=== PATIENT | female | born 1965 | race American Indian/Alaskan Native ===

== ENCOUNTER 2019-06-14 14:50 | Emergency (ER) | payer BC ==
--- NOTE | 2019-06-14 16:18 | Emergency Department Report ---
Blank Doc - Documentation Documentation: 54-yrea-old female that presents with wheezing, cough with HX of sacrodosis. This initial assessment/diagnostic orders/clinical plan/treatment(s) is/are subject to change based on patient's health status, clinical progression and re- assessment by fellow clinical providers in the ED. Further treatment and workup at subsequent clinical providers discretion. Patient/guardians urged not to elope from the ED as their condition may be serious if not clinically assessed and managed. Initial orders include: 1- Patient sent to [facility] for further evaluation and treatment 2- cxr
--- NOTE | 2019-06-14 16:49 | XRay Report ---
CHEST 2 VIEWS INDICATION / CLINICAL INFORMATION: cough. COMPARISON: 11/09/2008 FINDINGS: SUPPORT DEVICES: None. HEART / MEDIASTINUM: No significant abnormality. LUNGS / PLEURA: No significant pulmonary or pleural abnormality. No pneumothorax. ADDITIONAL FINDINGS: No significant additional findings. IMPRESSION: No significant abnormality or change from 11/09/2008 Signer Name: Phan Doll MD FACR Signed: 06/14/2019 4:44 PM Workstation Name: [id number]
[2019-06-14 18:51] VITALS: BP 173/77
--- NOTE | 2019-06-14 19:03 | Emergency Department Report ---
- General Chief Complaint: Upper Respiratory Infection Stated Complaint: SARCODOSIS/CP Time Seen by Provider: 06/14/19 16:10 Source: patient Mode of arrival: Ambulatory Limitations: No Limitations - History of Present Illness Initial Comments: Patient is a 54-year-old female presents emergency room with complaints of cold symptoms that began 3 weeks ago. She has associated productive cough, nausea, subjective fever, chest discomfort with coughing. She denies any leg swelling, pleuritic chest pain. She denies any recent travel, recent surgeries, hormone use. She denies being in contact with any confirmed cases of COVID 19. She has a past medical history of sarcoidosis and states that last week her doctor gave her 3 tablets of 10 mg of prednisone. She states that she also has a history of hypertension and states that she ran out of her 10 mg amlodipine. - Related Data Previous Rx's Medication Instructions Recorded Last Taken Type Albuterol Sulfate [Proventil Hfa] 6.7 gm IH QID PRN #1 hfa.aer.ad 06/14/19 Unknown Rx Azithromycin 500 mg PO DAILY 3 Days #3 tablet 06/14/19 Unknown Rx Benzonatate [Tessalon Perles] 100 mg PO Q8HR PRN #20 capsule 06/14/19 Unknown Rx Prednisone [predniSONE 10 mg 10 mg PO .TAPER #1 tab.ds.pk 06/14/19 Unknown Rx (6-Day Pack, 21 Tabs)] amLODIPine 10 mg PO DAILY 60 Days #60 tab 06/14/19 Unknown Rx Allergies Allergy/AdvReac Type Severity Reaction Status Date / Time No Known Allergies Allergy Unverified 06/14/19 14:58 ED Review of Systems ROS: Stated complaint: SARCODOSIS/CP Other details as noted in HPI Comment: All other systems reviewed and negative ED Past Medical Hx - Past Medical History Additional medical history: SARCOIDOSIS - Surgical History Past Surgical History?: No - Medications Home Medications: Home Medications Medication Instructions Recorded Confirmed Last Taken Type Albuterol Sulfate [Proventil Hfa] 6.7 gm IH QID PRN #1 hfa.aer.ad 06/14/19 Unknown Rx Azithromycin 500 mg PO DAILY 3 Days #3 tablet 06/14/19 Unknown Rx Benzonatate [Tessalon Perles] 100 mg PO Q8HR PRN #20 capsule 06/14/19 Unknown Rx Prednisone [predniSONE 10 mg 10 mg PO .TAPER #1 tab.ds.pk 06/14/19 Unknown Rx (6-Day Pack, 21 Tabs)] amLODIPine 10 mg PO DAILY 60 Days #60 tab 06/14/19 Unknown Rx ED Physical Exam - General Limitations: No Limitations General appearance: alert, in no apparent distress - Head Head exam: Present: atraumatic, normocephalic - Eye Eye exam: Present: normal appearance - ENT ENT exam: Present: normal orophraynx, mucous membranes moist, other (bilateral cerumen impactions, no tonsilar hypertrophy or exudates) - Respiratory Respiratory exam: Present: normal lung sounds bilaterally. Absent: respiratory distress, wheezes, rales, rhonchi, stridor, chest wall tenderness, accessory muscle use, decreased breath sounds, prolonged expiratory - Cardiovascular Cardiovascular Exam: Present: regular rate, normal rhythm, normal heart sounds. Absent: systolic murmur, diastolic murmur, rubs, gallop - Neurological Exam Neurological exam: Present: alert, oriented X3 - Psychiatric Psychiatric exam: Present: normal affect, normal mood - Skin Skin exam: Present: warm, dry, intact ED Course Vital Signs 06/14/19 15:05 Pulse Rate 60 Blood Pressure 173/77 O2 Sat by Pulse 98 Oximetry ED Medical Decision Making - Radiology Data Radiology results: report reviewed CHEST 2 VIEWS INDICATION / CLINICAL INFORMATION: cough. COMPARISON: 11/09/2008 FINDINGS: SUPPORT DEVICES: None. HEART / MEDIASTINUM: No significant abnormality. LUNGS / PLEURA: No significant pulmonary or pleural abnormality. No pneumothorax. ADDITIONAL FINDINGS: No significant additional findings. IMPRESSION: No significant abnormality or change from 11/09/2008 Signer Name: Phan Doll MD FACR Signed: 06/14/2019 4:44 PM Workstation Name: [id number] Transcribed By: MS Dictated By: Phan Doll MD Electronically Authenticated By: Phan Doll MD Signed Date/Time: 06/14/191643 DD/ 43 TD/TT: - Medical Decision Making Patient is a 54-year-old female presents emergency room with complaints of cold symptoms that began 3 weeks ago. She has associated productive cough, nausea, subjective fever, chest discomfort with coughing. She denies any leg swelling, pleuritic chest pain. She denies any recent travel, recent surgeries, hormone use. She denies being in contact with any confirmed cases of COVID 19. She has a past medical history of sarcoidosis and states that last week her doctor gave her 3 tablets of 10 mg of prednisone. She states that she also has a history of hypertension and states that she ran out of her 10 mg amlodipine. VSS. on exam: bilateral cerumen impactions, no tonsilar hypertrophy or exudates, breath sounds are clear bilaterally, no wheezing, no rales, no rhonchi. CXR: No significant abnormality or change from 11/09/2008. Advised patient to use Debrox ear cleaning solution kit [id number] for cerumen impactions and have her ears reevaluated by her primary care physician. Patient's symptoms and examination consistent with acute bronchitis. Patient given prescription for azithromycin, steroid taper, Tessalon Perles, albuterol inhaler, and refill of her amlodipine. advised pt to please take medications as prescribed. Please wash your hands frequently. If you cough or sneeze please do it into a napkin and throw it away and then wash your hands. Please stay at home until your symptoms have improved. Follow-up with a primary care doctor in the next 3 to 5 days for reexamination. Return to the emergency room immediately for any new or worsening symptoms. - Differential Diagnosis PNA, URI, bronchitis, viral syndrome, pharyngitis, sinusitis Critical care attestation.: If time is entered above; I have spent that time in minutes in the direct care of this critically ill patient, excluding procedure time. ED Disposition Clinical Impression: Acute bronchitis Qualifiers: Bronchitis organism: unspecified organism Qualified Code(s): J20.9 - Acute bronchitis, unspecified Cerumen impaction Qualifiers: Laterality: bilateral Qualified Code(s): H61.23 - Impacted cerumen, bilateral Disposition: DC-01 TO HOME OR SELFCARE Is pt being admited?: No Does the pt Need Aspirin: No Condition: Stable Instructions: Acute Bronchitis (ED) Additional Instructions: Please take medications as prescribed. Please wash your hands frequently. If you cough or sneeze please do it into a napkin and throw it away and then wash your hands. Please stay at home until your symptoms have improved. Follow-up with a primary care doctor in the next 3 to 5 days for reexamination. Return to the emergency room immediately for any new or worsening symptoms. Prescriptions: amLODIPine 10 mg PO DAILY 60 Days #60 tab Azithromycin 500 mg PO DAILY 3 Days #3 tablet Prednisone [predniSONE 10 mg (6-Day Pack, 21 Tabs)] 10 mg PO .TAPER #1 tab.ds.pk Albuterol Sulfate [Proventil Hfa] 6.7 gm IH QID PRN #1 hfa.aer.ad PRN Reason: shortness of breath Benzonatate [Tessalon Perles] 100 mg PO Q8HR PRN #20 capsule PRN Reason: cough Referrals: KY LUQUE MD [Primary Care Provider] - 3-5 Days MARINA LONDON MD [Staff Physician] - 3-5 Days [facility] [Outside] - 3-5 Days [facility] [Outside] - 3-5 Days Forms: Work/School Release Form(ED) Time of Disposition: 19:01 Print Language: UPPER SORBIAN
== END 2019-06-14 19:06 | disposition home or self-care (01) ==
LOC: ED 14:50
DX: J20.9 Acute bronchitis, unspecified (principal); H61.23 Impacted cerumen, bilateral; D86.9 Sarcoidosis, unspecified; I10 Essential (primary) hypertension; Z79.2 Long term (current) use of antibiotics; Z79.899 Other long term (current) drug therapy
CPT/HCPCS: 71046

== ENCOUNTER 2019-08-27 08:48 | Emergency (ER) | payer BC ==
[2019-08-27] MEDS ORDERED: ASPIRIN 325 MG TAB PO ONE (09:01)
[2019-08-27] MEDS ORDERED: SODIUM CHLORIDE 0.9% 1000 ML 1,000 ML IV ONE (09:33)
[2019-08-27] MEDS ORDERED: CYCLOBENZAPRINE 10 MG TAB PO ONE (09:33)
--- NOTE | 2019-08-27 09:48 | XRay Report ---
CHEST 1 VIEW INDICATION / CLINICAL INFORMATION: Chest Pain. COMPARISON: 06/14/2019 FINDINGS: SUPPORT DEVICES: None. HEART / MEDIASTINUM: No significant abnormality. LUNGS / PLEURA: No significant pulmonary or pleural abnormality. No pneumothorax. ADDITIONAL FINDINGS: No significant additional findings. IMPRESSION: No acute pulmonary or pleural abnormality. No change from 06/14/2019 Signer Name: Phan Doll MD FACR Signed: 08/27/2019 9:44 AM Workstation Name: [id number]
--- NOTE | 2019-08-27 10:10 | Emergency Department Report ---
HPI - General Chief Complaint: Chest Pain Time Seen by Provider: 08/27/19 09:04 - HPI HPI: 54-year-old -[place] female presents to the emergency department from home with complaint of back pain and chest pain. Patient has been having some mid to upper back pain since last , 4 days ago. It worsens with laying flat and with certain movements of her upper body. She denies any problems with bowel or bladder, numbness or paresthesias, or any neurological deficits. This morning the patient woke up with some midsternal chest pain that she feels is radiating from the back. Patient has a history of hypertension and sarcoidosis. She denies any fever, nausea or vomiting, lower extremity edema, shortness of breath. No recent travel or sick contacts at home. She denies any tobacco or illicit drug use. She does not have a primary care physician. The patient did see a telemedicine doctor and was prescribed some prednisone. ED Past Medical Hx - Past Medical History Previous Medical History?: Yes Hx Hypertension: Yes Additional medical history: SARCOIDOSIS - Social History Smoking Status: Never Smoker Substance Use Type: None - Medications Home Medications: Home Medications Medication Instructions Recorded Confirmed Last Taken Type Albuterol Sulfate [Proventil Hfa] 6.7 gm IH QID PRN #1 hfa.aer.ad 06/14/19 Unknown Rx Azithromycin 500 mg PO DAILY 3 Days #3 tablet 06/14/19 Unknown Rx Benzonatate [Tessalon Perles] 100 mg PO Q8HR PRN #20 capsule 06/14/19 Unknown Rx Prednisone [predniSONE 10 mg 10 mg PO .TAPER #1 tab.ds.pk 06/14/19 Unknown Rx (6-Day Pack, 21 Tabs)] amLODIPine 10 mg PO DAILY 60 Days #60 tab 06/14/19 Unknown Rx Cyclobenzaprine [Flexeril] 10 mg PO TID PRN #12 tablet 08/27/19 Unknown Rx Ibuprofen [Motrin 800 MG tab] 800 mg PO Q8HR PRN #20 tablet 08/27/19 Unknown Rx ED Review of Systems ROS: Stated complaint: CHEST PAIN Other details as noted in HPI Comment: All other systems reviewed and negative Constitutional: denies: chills, fever Eyes: denies: eye pain, vision change ENT: denies: ear pain, throat pain Respiratory: denies: cough, shortness of breath Cardiovascular: chest pain. denies: edema Gastrointestinal: denies: abdominal pain, vomiting Genitourinary: denies: dysuria, discharge Musculoskeletal: back pain. denies: joint swelling Skin: denies: rash, lesions Neurological: denies: headache, weakness Physical Exam - Physical Exam Vital Signs: Vital Signs 08/27/19 08:56 Temperature 98.4 F Pulse Rate 61 Respiratory 18 Rate Blood Pressure 186/89 O2 Sat by Pulse 96 Oximetry Physical Exam: GENERAL: The patient is well-developed well-nourished. HENT: Normocephalic. Atraumatic. Patient has moist mucous membranes. EYES: Extraocular motions are intact. NECK: Supple. Trachea is midline. CHEST/LUNGS: Clear to auscultation. There is no respiratory distress noted. HEART/CARDIOVASCULAR: Regular. There is no tachycardia. There is no murmur. ABDOMEN: Abdomen is soft, nontender. Patient has normal bowel sounds. SKIN: Skin is warm and dry. NEURO: The patient is awake, alert, and oriented. The patient is cooperative. The patient has no focal neurologic deficits. Normal speech. MUSCULOSKELETAL: There is no tenderness or deformity. There is no evidence of acute injury. BACK: No midline thoracic or lumbar tenderness to palpation, step-off or deformity. There is some reproducible mid to upper thoracic bilateral paraspinal tenderness to palpation. ED Course Vital Signs 08/27/19 08:56 Temperature 98.4 F Pulse Rate 61 Respiratory 18 Rate Blood Pressure 186/89 O2 Sat by Pulse 96 Oximetry ED Medical Decision Making - Lab Data Result diagrams: 08/27/19 09:07 08/27/19 09:07 - EKG Data -: EKG Interpreted by Me EKG shows normal: sinus rhythm, axis, intervals, QRS complexes, ST-T waves Rate: bradycardia (52 bpm) - EKG Data When compared to previous EKG there are: no significant change Interpretation: normal EKG (with mild bradycardia) - Radiology Data Radiology results: image reviewed interpreted by me: Chest x-ray does not show any acute process. There are no pleural effusions, obvious pneumonia and there is no pneumothorax. - Medical Decision Making This patient presented to the emergency department with a complaint of a 4-day history of upper back pain and then developed some midsternal chest discomfort earlier today. Back pain appears musculoskeletal as it is reproducible to palpation and worsens with certain movements. There is no midline pain or deformity. The chest pain also appears to have a musculoskeletal component. EKG was done that does not have any morphology consistent with ST elevation myocardial infarction or any significant dysrhythmia. Patient's labs have been mostly unremarkable including negative troponins x2 and a negative d-dimer. A chest x-ray was done that does not show any pneumonia, pleural effusions or pneumothorax, or any other acute process. Patient was given some anti- inflammatory medication, a muscle relaxer and a dose of IV analgesia. She was reevaluated multiple times over multiple hours and is feeling greatly improved. The back pain has significantly decreased. The chest pain has resolved at this point. She has a low heart and PALMA score. For all these reasons the patient appears safe for discharge home at this time. However her contact information has been sent over to the [facility] and vascular [place], and as part of our lo w risk chest pain protocol someone from their office should be contacting her shortly for close outpatient follow-up. She has also been given a referral for an orthopedist regarding her back pain. She will return to the emergency department with any worsening of her symptoms or any acute distress. Critical Care Time: No Critical care attestation.: If time is entered above; I have spent that time in minutes in the direct care of this critically ill patient, excluding procedure time. ED Disposition Clinical Impression: Hypertension Qualifiers: Hypertension type: essential hypertension Qualified Code(s): I10 - Essential (primary) hypertension Chest pain Qualifiers: Chest pain type: unspecified Qualified Code(s): R07.9 - Chest pain, unspecified Back pain Qualifiers: Back pain location: thoracic back pain Chronicity: unspecified Back pain laterality: bilateral Qualified Code(s): M54.6 - Pain in thoracic spine Disposition: DC-01 TO HOME OR SELFCARE Is pt being admited?: No Condition: Stable Instructions: Chest Pain (ED), Hypertension (ED) Additional Instructions: Please follow-up with a primary care physician in the next few days. I have given you a referral for a local orthopedist, Dr. Fritz, to follow-up regarding the back pains. I have also sent your contact information to the [facility] [place] and someone from their office should be contacting you in the next few days regarding close outpatient follow-up for your previous chest pain. Take the medications as prescribed. Return to the emergency department with any worsening of your symptoms or any acute distress. You have been prescribed a medication that is sedating and therefore should not be taken prior to driving, working, and responsible for children and in no way should be mixed with alcohol of any quantity. Prescriptions: Cyclobenzaprine [Flexeril] 10 mg PO TID PRN #12 tablet PRN Reason: Muscle Spasm Ibuprofen [Motrin 800 MG tab] 800 mg PO Q8HR PRN #20 tablet PRN Reason: Pain , Severe (7-10) Referrals: PRIMARY CARE, [Primary Care Provider] - 2-3 Days NENO FRITZ MD [Staff Physician] - 2-3 Days DORIS HAIR MD [Staff Physician] - 2-3 Days Forms: Work/School Release Form(ED) Time of Disposition: 13:26 Heart Score - HEART Score History: Slightly suspicious EKG: Normal Age: 45-65 Risk factors: 1-2 risk factors Troponin: < normal limit HEART Score: 2 - Critical Actions Critical Actions: 0-3 pts:0.9-1.7%risk of adverse cardiac event.Candidate for discharge PALMA score - Palma Score Age > 65: (0) No Aspirin use within the Past 7 Days: (0) No 3 or more CAD Risk Factors: (0) No 2 or more Angina events in past 24 hrs: (1) Yes (If pain is considered angina.) Known CAD with more than 50% Stenosis: (0) No Elevated Cardiac Markers: (0) No
[2019-08-27 10:35] LABS: Basophils # (Auto) 0.1 K/mm3 (0.0-0.1); Basophils % (Auto) 0.5 % (0.0-1.8); Eosinophils # (Auto) 0.1 K/mm3 (0.0-0.4); Eosinophils % (Auto) 0.8 % (0.0-4.3); Hematocrit 42.9 % (30.3-42.9); Hemoglobin 13.8 gm/dl (10.1-14.3); Lymphocytes # (Auto) 4.5 K/mm3 (1.2-5.4); Lymphocytes % (Auto) 37.6 % (13.4-35.0); Mean Corpuscular HGB Conc 32 % (30-34); Mean Corpuscular Volume 87 fl (79-97); Monocytes # (Auto) 1.1 K/mm3 (0.0-0.8); Platelet Count 311 K/mm3 (140-440); Red Blood Count 4.94 M/mm3 (3.65-5.03); Red Cell Distribution Width 14.6 % (13.2-15.2)
[2019-08-27 10:47] LABS: BUN/Creatinine Ratio 29; Blood Urea Nitrogen 23 mg/dL (7-17); Hemolysis Index 11
[2019-08-27] MEDS ORDERED: KETOROLAC 30 MG/1 ML INJ IV ONE (10:49)
[2019-08-27] MEDS ORDERED: MORPHINE 4 MG/1 ML INJ IV ONE (12:24)
[2019-08-27 13:35] VITALS: BP 118/64
== END 2019-08-27 14:10 | disposition home or self-care (01) ==
LOC: ED 08:48
DX: I10 Essential (primary) hypertension (principal); M54.6 Pain in thoracic spine; R07.89 Other chest pain; D86.9 Sarcoidosis, unspecified; Z79.1 Long term (current) use of non-steroidal anti-inflammatories (NSAID); Z79.2 Long term (current) use of antibiotics; Z79.899 Other long term (current) drug therapy
CPT/HCPCS: 36415; 71045; 80048; 84484; 85025; 85379; 85610; 93005; 96374; 96375; 99284; J1885; J2270; J7030

== ENCOUNTER 2020-09-09 13:24 | Emergency (ER) | payer BC ==
--- NOTE | 2020-09-09 15:05 | Event Note ---
ED Screening Note Date of service: 09/09/20 Time: 15:03 ED Screening Note: 55-year-old female presents to the ER today complaining of rectal bleeding. She states that symptoms started this past Tuesday. She describes the blood as maroon-colored but she also noticed some mucus as well. She reports associated upper abdominal pain as well as nausea and she did vomit once this past Tuesday. He states that she take ibuprofen sometimes 3 times a day for chronic hip pain. She drinks occasionally. Has medical history significant for hypertension and chronic hip pain. He reports a history of hemorrhoids but she states that the symptoms that she is having feels different. He has never had a colonoscopy. She denies any similar symptoms in the past This initial assessment/diagnostic orders/clinical plan/treatment(s) is/are subject to change based on patients health status, clinical progression and re- assessment by fellow clinical providers in the ED. Further treatment and workup at subsequent clinical providers discretion. Patient/guardian urged not to elope from the ED as their condition may be serious if not clinically assessed and managed. Initial orders include: Labs/CT abdomen pelvis
[2020-09-09 15:31] LABS: Basophils # (Auto) 0.1 K/mm3 (0.0-0.1); Basophils % (Auto) 0.7 % (0.0-1.8); Eosinophils # (Auto) 0.2 K/mm3 (0.0-0.4); Eosinophils % (Auto) 2.1 % (0.0-4.3); Hematocrit 41.1 % (30.3-42.9); Hemoglobin 13.7 gm/dl (10.1-14.3); Lymphocytes # (Auto) 2.2 K/mm3 (1.2-5.4); Lymphocytes % (Auto) 29.3 % (13.4-35.0); Mean Corpuscular HGB Conc 33 % (30-34); Mean Corpuscular Volume 88 fl (79-97); Monocytes # (Auto) 0.8 K/mm3 (0.0-0.8); Monocytes % (Auto) 11.3 % (0.0-7.3); Platelet Count 284 K/mm3 (140-440); Red Blood Count 4.67 M/mm3 (3.65-5.03); Red Cell Distribution Width 14.2 % (13.2-15.2)
[2020-09-09] MEDS ORDERED: SODIUM CHLORIDE 0.9% 1000 ML 1,000 ML IV ONE (15:36)
[2020-09-09 15:41] LABS: INR 0.96 (0.87-1.13)
[2020-09-09 15:43] LABS: Alanine Aminotransferase 18 units/L (7-56); Albumin 4.8 g/dL (3.9-5)
[2020-09-09 15:45] LABS: Bilirubin,Direct < 0.2 mg/dL (0-0.2)
[2020-09-09 15:46] LABS: BUN/Creatinine Ratio 19; Blood Urea Nitrogen 15 mg/dL (7-17); Calcium 9.8 mg/dL (8.4-10.2); Hemolysis Index 7
[2020-09-09 16:15] LABS: Bacteria,Urine 1+ /HPF (Negative); Bilirubin,Urine NEG (Negative); Blood,Urine NEG (Negative); Color,Urine Yellow (Yellow); Mucus,Urine FEW /HPF; Protein,Urine <15 mg/dL mg/dL (Negative); Urobilinogen,Urine < 2.0 mg/dL (<2.0); WBC,Urine < 1.0 /HPF (0.0-6.0)
--- NOTE | 2020-09-09 16:30 | Emergency Department Report ---
ED Abdominal Pain HPI - General Chief Complaint: Abdominal Pain Stated Complaint: BLOOD IN STOOL/ABDOMINAL PAIN PUI?: No Time Seen by Provider: 09/09/20 16:30 Source: patient Mode of arrival: Ambulatory Limitations: No Limitations - History of Present Illness Initial Comments: Patient is a pleasant 55-year-old -[place] female that comes to the emergency room today complaining of a dark stool this past weekend. She states that this occurred 1 time patient states that it was maroon in color. She states that the more she thought about the more she thought she should be checked. Patient denies any abdominal pain, chest pain, shortness of breath, dysuria, back pain, or dizziness she denies fever or chills. Patient does take NSAIDs daily for her left chronic hip pain. She states that she needs a hip replacement. On arrival to [facility] patient is ambulatory, nontoxic and [id number] -: Gradual, days(s) Radiation: none Severity: mild Severity scale (0 -10): 7 Worsens With: nothing Associated Symptoms: denies other symptoms - Related Data Previous Rx's Medication Instructions Recorded Last Taken Type amLODIPine 10 mg PO DAILY 60 Days #60 tab 06/14/19 Unknown Rx Pantoprazole [Protonix] 40 mg PO QDAY #30 tablet 09/09/20 Unknown Rx Allergies Allergy/AdvReac Type Severity Reaction Status Date / Time No Known Allergies Allergy Unverified 06/14/19 14:58 ED Review of Systems ROS: Stated complaint: BLOOD IN STOOL/ABDOMINAL PAIN Other details as noted in HPI Comment: All other systems reviewed and negative ED Past Medical Hx - Past Medical History Previous Medical History?: Yes Hx Hypertension: Yes Additional medical history: SARCOIDOSIS, chronic hip pain - Surgical History Past Surgical History?: Yes Additional Surgical History: TL - Family History Family history: no significant - Social History Smoking Status: Never Smoker Substance Use Type: None - Medications Home Medications: Home Medications Medication Instructions Recorded Confirmed Last Taken Type amLODIPine 10 mg PO DAILY 60 Days #60 tab 06/14/19 Unknown Rx Pantoprazole [Protonix] 40 mg PO QDAY #30 tablet 09/09/20 Unknown Rx ED Physical Exam - General Limitations: No Limitations General appearance: alert, in no apparent distress - Head Head exam: Present: atraumatic, normocephalic - Eye Eye exam: Present: normal appearance - ENT ENT exam: Present: mucous membranes moist - Neck Neck exam: Present: normal inspection - Respiratory Respiratory exam: Present: normal lung sounds bilaterally. Absent: respiratory distress - Cardiovascular Cardiovascular Exam: Present: regular rate, normal rhythm. Absent: systolic murmur, diastolic murmur, rubs, gallop - GI/Abdominal GI/Abdominal exam: Present: soft, normal bowel sounds - Extremities Exam Extremities exam: Present: normal inspection - Back Exam Back exam: Present: normal inspection - Neurological Exam Neurological exam: Present: alert, oriented X3 - Psychiatric Psychiatric exam: Present: normal affect, normal mood - Skin Skin exam: Present: warm, dry, intact, normal color. Absent: rash ED Course Vital Signs 09/09/20 09/09/20 13:29 15:35 Temperature 98.1 F Pulse Rate 60 54 L Respiratory 18 22 Rate Blood Pressure 198/95 195/83 [Right] O2 Sat by Pulse 96 96 Oximetry ED Medical Decision Making - Lab Data Result diagrams: 09/09/20 15:06 09/09/20 15:06 - Radiology Data Radiology results: report reviewed, image reviewed - Medical Decision Making Lab Results 09/09/20 09/09/20 09/09/20 Range/Units 15:06 15:06 15:06 WBC 7.5 (4.5-11.0) K/mm3 RBC 4.67 (3.65-5.03) M/mm3 Hgb 13.7 (10.1-14.3) gm/dl Hct 41.1 (30.3-42.9) % MCV 88 (79-97) fl MCH 29 (28-32) pg MCHC 33 (30-34) % RDW 14.2 (13.2-15.2) % Plt Count 284 (140-440) K/mm3 Lymph % (Auto) 29.3 (13.4-35.0) % [place] % (Auto) 11.3 H (0.0-7.3) % Eos % (Auto) 2.1 (0.0-4.3) % Baso % (Auto) 0.7 (0.0-1.8) % Lymph # (Auto) 2.2 (1.2-5.4) K/mm3 [place] # (Auto) 0.8 (0.0-0.8) K/mm3 Eos # (Auto) 0.2 (0.0-0.4) K/mm3 Baso # (Auto) 0.1 (0.0-0.1) K/mm3 Seg Neutrophils % 56.6 (40.0-70.0) % Seg Neutrophils # 4.2 (1.8-7.7) K/mm3 PT 13.3 (12.2-14.9) Sec. INR 0.96 (0.87-1.13) APTT 28.0 (24.2-36.6) Sec. Sodium (137-145) mmol/L Potassium (3.6-5.0) mmol/L Chloride (98-107) mmol/L Carbon Dioxide (22-30) mmol/L Anion Gap mmol/L BUN (7-17) mg/dL Creatinine (0.6-1.2) mg/dL Estimated GFR ml/min BUN/Creatinine Ratio % Glucose (65-100) mg/dL Calcium (8.4-10.2) mg/dL Total Bilirubin 0.20 (0.1-1.2) mg/dL Direct Bilirubin < 0.2 (0-0.2) mg/dL Indirect Bilirubin 0.0 mg/dL AST 13 (5-40) units/L ALT 18 (7-56) units/L Alkaline Phosphatase 129 (35-129) units/L Total Protein 8.0 (6.3-8.2) g/dL Albumin 4.8 (3.9-5) g/dL Albumin/Globulin Ratio 1.5 % Lipase 22 (13-60) units/L Urine Color (Yellow) Urine Turbidity (Clear) Urine pH (5.0-7.0) Ur Specific [place] (1.003-1.030) Urine Protein (Negative) mg/dL Urine Glucose (UA) (Negative) mg/dL Urine Ketones (Negative) mg/dL Urine Blood (Negative) Urine Nitrite (Negative) Urine Bilirubin (Negative) Urine Urobilinogen (<2.0) mg/dL Ur Leukocyte Esterase (Negative) Urine WBC (Auto) (0.0-6.0) /HPF Urine RBC (Auto) (0.0-6.0) /HPF U Epithel Cells (Auto) (0-13.0) /HPF Urine Bacteria (Auto) (Negative) /HPF Urine Mucus /HPF 09/09/20 09/09/20 Range/Units 15:06 16:01 WBC (4.5-11.0) K/mm3 RBC (3.65-5.03) M/mm3 Hgb (10.1-14.3) gm/dl Hct (30.3-42.9) % MCV (79-97) fl MCH (28-32) pg MCHC (30-34) % RDW (13.2-15.2) % Plt Count (140-440) K/mm3 Lymph % (Auto) (13.4-35.0) % [place] % (Auto) (0.0-7.3) % Eos % (Auto) (0.0-4.3) % Baso % (Auto) (0.0-1.8) % Lymph # (Auto) (1.2-5.4) K/mm3 [place] # (Auto) (0.0-0.8) K/mm3 Eos # (Auto) (0.0-0.4) K/mm3 Baso # (Auto) (0.0-0.1) K/mm3 Seg Neutrophils % (40.0-70.0) % Seg Neutrophils # (1.8-7.7) K/mm3 PT (12.2-14.9) Sec. INR (0.87-1.13) APTT (24.2-36.6) Sec. Sodium 137 (137-145) mmol/L Potassium 3.7 (3.6-5.0) mmol/L Chloride 99.3 (98-107) mmol/L Carbon Dioxide 25 (22-30) mmol/L Anion Gap 16 mmol/L BUN 15 (7-17) mg/dL Creatinine 0.8 (0.6-1.2) mg/dL Estimated GFR > 60 ml/min BUN/Creatinine Ratio 19 % Glucose 100 (65-100) mg/dL Calcium 9.8 (8.4-10.2) mg/dL Total Bilirubin (0.1-1.2) mg/dL Direct Bilirubin (0-0.2) mg/dL Indirect Bilirubin mg/dL AST (5-40) units/L ALT (7-56) units/L Alkaline Phosphatase (35-129) units/L Total Protein (6.3-8.2) g/dL Albumin (3.9-5) g/dL Albumin/Globulin Ratio % Lipase (13-60) units/L Urine Color Yellow (Yellow) Urine Turbidity Clear (Clear) Urine pH 5.0 (5.0-7.0) Ur Specific [place] 1.016 (1.003-1.030) Urine Protein <15 mg/dl (Negative) mg/dL Urine Glucose (UA) Neg (Negative) mg/dL Urine Ketones Neg (Negative) mg/dL Urine Blood Neg (Negative) Urine Nitrite Neg (Negative) Urine Bilirubin Neg (Negative) Urine Urobilinogen < 2.0 (<2.0) mg/dL Ur Leukocyte Esterase Neg (Negative) Urine WBC (Auto) < 1.0 (0.0-6.0) /HPF Urine RBC (Auto) 1.0 (0.0-6.0) /HPF U Epithel Cells (Auto) 1.0 (0-13.0) /HPF Urine Bacteria (Auto) 1+ (Negative) /HPF Urine Mucus Few /HPF Vital Signs 09/09/20 09/09/20 13:29 15:35 Temperature 98.1 F Pulse Rate 60 54 L Respiratory 18 22 Rate Blood Pressure 198/95 195/83 [Right] O2 Sat by Pulse 96 96 Oximetry labs noted Hemoglobin 14. ua noted no tachycardia or hypotension Patient has been instructed not to take NSAID medications. She uses these chronically for her left hip pain. CT scan noted. Patient being discharged home with discharge plan of care including follow-up with GI. She has been instructed not to take NSAIDs. She most likely will need an EGD. I have started her on Protonix daily. Patient verbalizes understanding of discharge plan of care. On discharge she is ambulatory, [id number] nontoxic. She has no tachycardia or hypotension. - Differential Diagnosis ro GIB- anemia Critical care attestation.: If time is entered above; I have spent that time in minutes in the direct care of this critically ill patient, excluding procedure time. ED Disposition Clinical Impression: Dark stools Disposition: DC-01 TO HOME OR SELFCARE Is pt being admited?: No Does the pt Need Aspirin: No Condition: Stable Instructions: Gastrointestinal Bleeding, Abdominal Pain (ED) Additional Instructions: avoid motrin or any NSAID medications stay well hydrated med as ordered today follow up with PCP and GI FRANKO referrals below Prescriptions: Pantoprazole [Protonix] 40 mg PO QDAY #30 tablet Referrals: ROSALIA BALLESTEROS MD [Primary Care Provider] - 3-5 Days CÉSAR CORCORAN MD [Staff Physician] - 3-5 Days Time of Disposition: 16:34
--- NOTE | 2020-09-09 16:34 | Cat Scan Report ---
CT ABDOMEN AND PELVIS WITH CONTRAST INDICATION / CLINICAL INFORMATION: Abdominal Pain/GI bleed/rectal bleed. TECHNIQUE: Axial CT images were obtained through the abdomen and pelvis after 100 cc Omnipaque [address] scans at this location are performed using CT dose reduction for ALARA by means of automated exposure control. COMPARISON: None available. FINDINGS: LOWER CHEST: No significant abnormality. LIVER: The right hepatic lobe is enlarged and measures 23 cm in length. No other significant abnormal ity. GALLBLADDER: No significant abnormality. BILE DUCTS: No significant abnormality. PANCREAS: No significant abnormality. SPLEEN: No significant abnormality. ADRENALS: No significant abnormality. RIGHT KIDNEY / URETER: No significant abnormality. LEFT KIDNEY / URETER: No significant abnormality. STOMACH / SMALL BOWEL: No significant abnormality. COLON: There is descending and sigmoid diverticulosis without evidence of diverticulitis or other sig nificant abnormalities. APPENDIX: No significant abnormality. PERITONEUM: No free fluid. No free air. No fluid collection. Nonspecific increased attenuation of the central mesenteric fat is noted without other associated significant abnormalities. LYMPH NODES: No significant adenopathy. AORTA / ARTERIES: No significant abnormality. IVC / VEINS: No significant abnormality. URINARY BLADDER: No significant abnormality. REPRODUCTIVE ORGANS: No significant abnormality. ADDITIONAL FINDINGS: None. SKELETAL SYSTEM: No acute abnormality. There are moderate degenerative changes along the spine and mi ld degenerative changes throughout the pelvis. IMPRESSION: 1. No acute abnormality to explain the patient's pain. No CT evidence of an active GI bleed within th e constraints of this exam. 2. Additional findings as above. Signer Name: Naif Coleman MD Signed: 09/09/2020 4:29 PM Workstation Name: [email or web address]
[2020-09-09 17:32] VITALS: BP 148/65
== END 2020-09-09 17:30 | disposition home or self-care (01) ==
LOC: ED 13:24
DX: K92.1 Melena (principal); I10 Essential (primary) hypertension; Z98.890 Other specified postprocedural states; Z79.899 Other long term (current) drug therapy
CPT/HCPCS: 36415; 74177; 80048; 80076; 81001; 83690; 85025; 85610; 85730; 99284; Q9967

== ENCOUNTER 2021-09-09 21:14 | Emergency (ER) | payer BC ==
[2021-09-10 07:15] VITALS: BP 184/65
--- NOTE | 2021-09-10 08:27 | Emergency Department Report ---
ED General Adult HPI - General Chief complaint: Hyperglycemia Stated complaint: HIGH BS Time Seen by Provider: 09/10/21 07:59 Source: patient Mode of arrival: Ambulatory Limitations: No Limitations - History of Present Illness Initial comments: This is a 56-year-old -English female who presents to the emergency room with elevated blood glucose reading at home last night. Past medical history of hypertension and diabetes type 2. Patient states she is feeling thirsty with myalgia which prompted her to come in for further evaluation. Patient admits stopped taking medication for 2-1/2 weeks but restarted medication for the past 1.5 weeks her PCP is Dr. Adela Ballesteros. Patient denies chest pain, polyuria, edema, back pain, headache, blurry vision, or dizziness. -: Last night - Related Data Previous Rx's Medication Instructions Recorded Last Taken Type amLODIPine 10 mg PO DAILY 60 Days #60 tab 06/14/19 Unknown Rx Pantoprazole [Protonix] 40 mg PO QDAY #30 tablet 09/09/20 Unknown Rx Potassium Chloride [K-Dur] 20 meq PO BID #6 tab 09/10/21 Unknown Rx Allergies Allergy/AdvReac Type Severity Reaction Status Date / Time No Known Allergies Allergy Unverified 06/14/19 14:58 ED Review of Systems ROS: Stated complaint: HIGH BS Other details as noted in HPI Constitutional: denies: chills, fever Respiratory: denies: cough, shortness of breath, wheezing Cardiovascular: denies: chest pain, palpitations Endocrine: increased thirst. denies: excessive sweating, flushing, intolerance to cold, increased urine Musculoskeletal: myalgia. denies: back pain, joint swelling, arthralgia Skin: denies: rash, lesions Neurological: denies: headache, weakness, paresthesias Psychiatric: denies: anxiety, depression ED Past Medical Hx - Past Medical History Hx Hypertension: Yes Additional medical history: SARCOIDOSIS, chronic hip pain - Surgical History Additional Surgical History: TL - Social History Smoking Status: Never Smoker - Medications Home Medications: Home Medications Medication Instructions Recorded Confirmed Last Taken Type amLODIPine 10 mg PO DAILY 60 Days #60 tab 06/14/19 Unknown Rx Pantoprazole [Protonix] 40 mg PO QDAY #30 tablet 09/09/20 Unknown Rx Potassium Chloride [K-Dur] 20 meq PO BID #6 tab 09/10/21 Unknown Rx ED Physical Exam - General Limitations: No Limitations General appearance: alert, in no apparent distress, obese - Head Head exam: Present: atraumatic, normocephalic - Respiratory Respiratory exam: Present: normal lung sounds bilaterally. Absent: respiratory distress - Cardiovascular Cardiovascular Exam: Present: regular rate, normal rhythm. Absent: systolic murmur, diastolic murmur, rubs, gallop - GI/Abdominal GI/Abdominal exam: Present: soft, normal bowel sounds. Absent: distended, tenderness, guarding, rebound, organomegaly - Back Exam Back exam: Present: normal inspection - Neurological Exam Neurological exam: Present: alert, oriented X3, normal gait - Psychiatric Psychiatric exam: Present: normal affect, normal mood - Skin Skin exam: Present: warm, dry, intact, normal color. Absent: rash ED Course Vital Signs 09/09/21 09/10/21 21:55 07:14 Temperature 98.3 F Pulse Rate 64 Respiratory 18 Rate Blood Pressure 204/97 Blood Pressure 184/65 [Left] O2 Sat by Pulse 100 Oximetry ED Medical Decision Making - Lab Data Result diagrams: 09/10/21 08:53 09/10/21 08:53 Lab Results 09/10/21 09/10/21 09/10/21 Range/Units 08:53 08:53 Unknown WBC 7.2 (4.5-11.0) K/mm3 RBC 5.13 H (3.65-5.03) M/mm3 Hgb 14.2 (10.1-14.3) gm/dl Hct 43.4 H (30.3-42.9) % MCV 85 (79-97) fl MCH 28 (28-32) pg MCHC 33 (30-34) % RDW 14.3 (13.2-15.2) % Plt Count 272 (140-440) K/mm3 Lymph % (Auto) 31.7 (13.4-35.0) % [place] % (Auto) 10.6 H (0.0-7.3) % Eos % (Auto) 2.1 (0.0-4.3) % Baso % (Auto) 0.7 (0.0-1.8) % Lymph # (Auto) 2.3 (1.2-5.4) K/mm3 [place] # (Auto) 0.8 (0.0-0.8) K/mm3 Eos # (Auto) 0.2 (0.0-0.4) K/mm3 Baso # (Auto) 0.0 (0.0-0.1) K/mm3 Seg Neutrophils % 54.9 (40.0-70.0) % Seg Neutrophils # 4.0 (1.8-7.7) K/mm3 Sodium 137 (137-145) mmol/L Potassium 3.2 L (3.6-5.0) mmol/L Chloride 98.1 (98-107) mmol/L Carbon Dioxide 26 (22-30) mmol/L Anion Gap 16 mmol/L BUN 17 (7-17) mg/dL Creatinine 0.6 (0.6-1.2) mg/dL Estimated GFR > 60 ml/min BUN/Creatinine Ratio 28 % Glucose 100 (65-100) mg/dL Calcium 9.5 (8.4-10.2) mg/dL Total Bilirubin 0.20 (0.1-1.2) mg/dL AST 23 (5-40) units/L ALT 31 (7-56) units/L Alkaline Phosphatase 107 (35-129) units/L Total Protein 8.9 H (6.3-8.2) g/dL Albumin 4.7 (3.9-5) g/dL Albumin/Globulin Ratio 1.1 % Urine Color Straw (Yellow) Urine Turbidity Clear (Clear) Urine pH 6.0 (5.0-7.0) Ur Specific [place] 1.015 (1.003-1.030) Urine Protein <15 mg/dl (Negative) mg/dL Urine Glucose (UA) Negative (Negative) mg/dL Urine Ketones Negative (Negative) mg/dL Urine Blood Negative (Negative) Urine Nitrite Negative (Negative) Ur Reducing Substances Not Reportable Urine Bilirubin Negative (Negative) Urine Ictotest Not Reportable Urine Urobilinogen < 2.0 (<2.0) mg/dL Ur Leukocyte Esterase Negative (Negative) Urine WBC (Auto) 1.0 (0.0-6.0) /HPF Urine RBC (Auto) < 1.0 (0.0-6.0) /HPF U Epithel Cells (Auto) 2.0 (0-13.0) /HPF Urine Mucus Few /HPF - Medical Decision Making This is a 56 y.o. female that presents with body aches and elevated blood glucose reading since yesterday. History of diabetes mellitus type 2 & hypertension. Patient was examined by me. Obtained CMP, CBC, and UA. Review labs. Potassium 3.2. Given KCl 40 mill EQ. Instructed to continue taking metformin and amlodipine. Start KCl 20 mill EQ p.o. twice daily for 3 days. Follow-up with PCP Dr. Ballesteros in 2-3 days. Discussed plan with patient and agreed to plan. No further questions noted by the patient. Discharged home in stable condition. - Differential Diagnosis Hyperglycemia, sepsis, coronary syndrome, hepatic failure Critical care attestation.: If time is entered above; I have spent that time in minutes in the direct care of this critically ill patient, excluding procedure time. ED Disposition Clinical Impression: Hypokalemia, Myalgia Disposition: HOME / SELF CARE / HOMELESS Is pt being admited?: No Condition: Stable Instructions: Potassium Content of Foods Prescriptions: Potassium Chloride [K-Dur] 20 meq PO BID #6 tab Referrals: MARINA LONDON MD [Primary Care Provider] - 3-5 Days ADELA BALLESTEROS MD [Referring] - 3-5 Days Forms: Work/School Release Form(ED) Time of Disposition: 10:21
[2021-09-10 09:12] LABS: Mucus,Urine FEW /HPF; RBC,Urine < 1.0 /HPF (0.0-6.0)
[2021-09-10 09:26] LABS: Bilirubin,Urine Negative (Negative); Blood,Urine Negative (Negative); Color,Urine Straw (Yellow); Protein,Urine <15 mg/dL mg/dL (Negative); Urobilinogen,Urine < 2.0 mg/dL (<2.0)
[2021-09-10 09:55] LABS: Alanine Aminotransferase 31 units/L (7-56); Albumin 4.7 g/dL (3.9-5); BUN/Creatinine Ratio 28; Blood Urea Nitrogen 17 mg/dL (7-17); Calcium 9.5 mg/dL (8.4-10.2); Hemolysis Index 4
[2021-09-10] MEDS ORDERED: POTASSIUM CHLORIDE ER 20 MEQ TAB PO ONE (10:20)
[2021-09-10 10:23] LABS: Basophils % (Auto) 0.7 % (0.0-1.8); Eosinophils # (Auto) 0.2 K/mm3 (0.0-0.4); Eosinophils % (Auto) 2.1 % (0.0-4.3); Hematocrit 43.4 % (30.3-42.9); Hemoglobin 14.2 gm/dl (10.1-14.3); Lymphocytes # (Auto) 2.3 K/mm3 (1.2-5.4); Lymphocytes % (Auto) 31.7 % (13.4-35.0); Mean Corpuscular HGB Conc 33 % (30-34); Mean Corpuscular Volume 85 fl (79-97); Monocytes # (Auto) 0.8 K/mm3 (0.0-0.8); Monocytes % (Auto) 10.6 % (0.0-7.3); Platelet Count 272 K/mm3 (140-440); Red Blood Count 5.13 M/mm3 (3.65-5.03); Red Cell Distribution Width 14.3 % (13.2-15.2)
== END 2021-09-10 11:20 | disposition home or self-care (01) ==
LOC: ED 21:14
DX: E87.6 Hypokalemia (principal); M79.10 Myalgia, unspecified site; I10 Essential (primary) hypertension
CPT/HCPCS: 36415; 80053; 81001; 85025; 99283